=== PATIENT | female | born 1980 | race Asian ===

== ENCOUNTER 2017-04-24 14:00 | Emergency (ER) | payer OTHER ==
[~2017-04-24] VITALS: Ht 152.4 cm; Wt 73.6 kg
[2017-04-24 15:17] LABS: HEMATOCRIT 36.2 % (34.6-47.8); HEMOGLOBIN 12.2 g/dL (11.7-16.4); WHITE BLOOD COUNT 11.1 x10^3/uL (3.4-10)
[2017-04-24 15:30] LABS: ASPARTATE AMINO TRANSFERASE 40 U/L (15-37); BLOOD UREA NITROGEN 8 mg/dL (7-18)
[2017-04-24] MEDS ORDERED: SODIUM CHLORIDE 0.9% 1,000ML IVBOLUS ONE (16:00)
[2017-04-24] MEDS ORDERED: SODIUM CHLORIDE 0.9% 1,000 ML IV ONE (16:00)
[2017-04-24] MEDS ORDERED: ANTIBIOTIC (16:23)
[2017-04-24 17:49] VITALS: BP 113/67
== END 2017-04-24 17:51 | disposition home or self-care (01) ==
LOC: ED 16:42
DX: N10 Acute pyelonephritis (principal); I10 Essential (primary) hypertension
CPT/HCPCS: 36415; 76700; 80053; 81001; 83690; 84703; 85025; 87086; 96360; 99285; J7030

== ENCOUNTER 2017-05-26 17:25 | Emergency (ER) | payer OTHER ==
[~2017-05-26] VITALS: Ht 152.4 cm; Wt 73.9 kg
[~2017-05-26 17:25] MED LIST: ANTIBIOTIC
[2017-05-26 17:36] VITALS: BP 151/92
[2017-05-26] MEDS ORDERED: KETOROLAC 30 MG/1 ML ONE (19:17)
[2017-05-26] MEDS ORDERED: KETOROLAC 30 MG/1 ML IM ONE (19:30)
== END 2017-05-26 19:27 | disposition home or self-care (01) ==
LOC: ED 19:21
DX: S16.1XXA Strain of muscle, fascia and tendon at neck level, initial encounter (principal); I10 Essential (primary) hypertension; G44.319 Acute post-traumatic headache, not intractable; V49.9XXA Car occupant (driver) (passenger) injured in unspecified traffic accident, initial encounter; Y93.89 Activity, other specified; Y92.89 Other specified places as the place of occurrence of the external cause; Y99.9 Unspecified external cause status
CPT/HCPCS: 72050; 96372; 99284; J1885

== ENCOUNTER → 2020-06-21 | Outpatient (CLI) | payer OTHER | END | disposition home or self-care (01) | LOC: CFH 14:28 | PROVIDERS: ATTEND Nurse Practitioner Family | DX: Z12.31 Encounter for screening mammogram for malignant neoplasm of breast (principal) | CPT/HCPCS: 77063; 77067 ==

== ENCOUNTER → 2020-07-19 | Outpatient (CLI) | payer OTHER | END | disposition home or self-care (01) | LOC: CFH 12:42 | PROVIDERS: ATTEND Nurse Practitioner Family | DX: R92.8 Other abnormal and inconclusive findings on diagnostic imaging of breast (principal) | CPT/HCPCS: 76642; 77065 ==